=== PATIENT | female | born 1970 | race Caucasian/White ===

== ENCOUNTER 2019-10-26 03:59 | Emergency (ER) | payer OTHER, SELFPAY ==
[2019-10-26 04:04] VITALS: BP 162/91; PULSE 120; RESP 12; TEMP 36.6; O2SAT 100
--- NOTE | 2019-10-26 04:08 | ECG_ITS ---
Measurements Intervals [place] Rate: 112 P: 50 NV: 183 QRS: -50 QRSD: 97 T: 55 QT: 345 QTc: 472 Interpretive Statements SINUS TACHYCARDIA POSSIBLE LEFT ATRIAL ENLARGEMENT LEFT ANTERIOR FASCICULAR BLOCK BASELINE ARTIFACT- I, V5 ABNORMAL ECG Electronically Signed On 10-26-2019 9:31:31 CDT by William Gramajo D.O.
[2019-10-26] MEDS: SODIUM CHLORIDE 0.9% IV 1,000 ML 999 ML IV CONT (04:35)
[2019-10-26 04:36] LABS: Basophils Absolute Auto 0.1 K/mm3 (0.0-0.1); Basophils Percent Auto 0.5 % (0.2-1.2); Eosinophils Absolute Auto 0.1 K/mm3 (0-0.3); Eosinophils Percent Auto 0.5 % (0-4.4); Hematocrit 42.3 % (37.0-47.0); Hemoglobin 14.8 g/dL (12.0-15.0); Immature Granulocyte Absolute 0.03 K/mm3 (0.00-0.031); Immature Granulocyte Percent A 0.3 % (0-0.5); Lymphocytes Absolute Auto 3.73 K/mm3 (0.9-3.2); Lymphocytes Percent Auto 32.7 % (18.3-44.2); Mean Corpuscular Hemoglobin 30.3 pg (26-34); Mean Corpuscular Volume 86.7 fl (80-100); Mean Platelet Volume 11.1 fl (7.4-10.4); Monocytes Absolute Auto 0.6 K/mm3 (0.1-0.6); Monocytes Percent Auto 5.3 % (2.6-8.5); Neutrophils Absolute Auto 6.9 K/mm3 (1.3-6.7); Neutrophils Percent Auto 60.7 % (45.5-73.1); Platelet Count Result 310 k/mm3 (150-375); Red Blood Count 4.88 M/mm3 (4.2-5.4); Red Cell Distribution Width 12.6 % (11.5-14.5); White Blood Count 11.4 K/mm3 (4.5-10.0)
[2019-10-26 04:49] LABS: Blood Urea Nitrogen 10 mg/dL (7-17); Calcium 10.4 mg/dL (8.4-10.2); Carbon Dioxide 18 mmol/L (22-30); Chloride 105 mmol/L (98-107); Estimated Glomerular Filt Rate > 60; Glucose 168 mg/dL (65-105); Potassium 3.2 mmol/L (3.4-5.0); Sodium 137 mmol/L (137-145)
[2019-10-26 04:57] VITALS: BP 124/83; PULSE 94; RESP 17; O2SAT 95
[2019-10-26 05:04] LABS: Add Urine Microscopic? NO; Appearance Urine Clear (Clear); Bilirubin Urine Negative (Negative); Blood Urine Negative (Negative); Color Urine Colorless (Yellow); Glucose Urine UA Negative (Negative); Ketones Urine Negative (Negative); Leukocyte Esterase Ur Negative LEU/UL (Negative); Nitrate Urine Negative (Negative); Protein Urine Negative (Negative); Urobilinogen Urine Negative mg/dL (<2.0)
[2019-10-26 05:14] LABS: Specific Grav Ur 1.004 (1.001-1.035)
--- NOTE | 2019-10-26 06:13 | ED.GENADULT ---
HPI - General Adult General Chief complaint: Recheck/Abnormal Lab/Rx Stated complaint: high blood pressure Time Seen by Provider: 10/26/19 04:14 History of Present Illness HPI narrative: Patient is a 49-year-old female who presents the ER with racing heart. She has been feeling weak as of late and then felt like her heart was racing this evening. Heart rate of 120 upon arrival here. Patient is currently fasting for Ramadan. Denies fevers or chills or sweats. Patient's reported that patient had some chest tightness and is concerned she is having SVT, patient has not complained of chest pain. Related Data Allergies Allergy/AdvReac Type Severity Reaction Status Date / Time No Known Allergies Allergy Unverified 10/26/19 04:11 Review of Systems Review of Systems: All systems reviewed & are unremarkable except as noted in HPI and below Constitutional: Constitutional: Denies chills, Reports fatigue, Denies fever(s) and Reports weakness ENT: Denies nasal congestion and Denies sore throat Cardiovascular: Cardiovascular: Denies chest pain, Reports rapid heart rate and Denies radiating jaw, neck or arm pain Respiratory: Respiratory: Denies chest congestion, Denies dyspnea and Denies wheezing Gastrointestinal: Gastrointestinal: Denies abdominal pain, Denies diarrhea, Denies nausea and Denies vomiting Genitourinary: Genitourinary: Denies nocturia and Denies dysuria PMF Past Medical History Medical History (Updated 10/26/19 @ 06:25 by Saravanan Finn MD) No active medical problems Surgical History Surgical History (Updated 10/26/19 @ 06:19 by Saravanan Finn MD) History of section Family History Family History (Updated 01/07/16 @ 23:19 by DOCTOR UNKNOWN) Mother Hypertension Family history of diabetes mellitus in first degree relative Sibling Family history of malignant neoplasm Father Family history of diabetes mellitus in first degree relative Social History Social History Smoking status: Never smoker Alcohol intake: never Exam Narrative: Exam Narrative: GENERAL: Well-appearing, well-nourished, and in no acute distress. HEAD: Normocephalic, atraumatic. ENT: Mucous membranes moist. CHEST: Clear to auscultation. No respiratory distress. HEART: Tachycardic and regular. Normal peripheral pulses. ABDOMEN: Soft, nontender, nondistended. EXTREMITIES: Normal range of motion. No edema. SKIN: Warm, dry, no rash. NEURO: Alert and oriented x3. Course Course Emergency Course: Patient resting comfortably. Doing much better with IV fluid. Heart rate has reduced and is now 59 bpm with a blood pressure 109/76. She will be discharged home. Needs follow-up with PCP Vital Signs Vital signs: Vital Signs Temperature 97.8 F 10/26/19 04:04 Pulse Rate 120 H 10/26/19 04:04 Respiratory Rate 12 10/26/19 04:04 Blood Pressure 162/91 H 10/26/19 04:04 Pulse Oximetry 100 10/26/19 04:04 Temperature 97.8 F 10/26/19 04:04 Pulse Rate 94 10/26/19 04:57 Respiratory Rate 17 10/26/19 04:57 Blood Pressure 124/83 10/26/19 04:57 Pulse Oximetry 95 10/26/19 04:57 Medical Decision Making Vital Signs Vital Signs: Vital Signs Temperature 97.8 F 10/26/19 04:04 Pulse Rate 120 H 10/26/19 04:04 Respiratory Rate 12 10/26/19 04:04 Blood Pressure 162/91 H 10/26/19 04:04 Pulse Oximetry 100 10/26/19 04:04 Temperature 97.8 F 10/26/19 04:04 Pulse Rate 94 10/26/19 04:57 Respiratory Rate 17 10/26/19 04:57 Blood Pressure 124/83 10/26/19 04:57 Pulse Oximetry 95 10/26/19 04:57 Lab Data Result diagrams: 10/26/19 04:17 10/26/19 04:17 Labs: Lab Results 10/26/19 10/26/19 10/26/19 Range/Units 04:17 04:17 04:17 WBC 11.4 H (4.5-10.0) K/mm3 RBC 4.88 (4.2-5.4) M/mm3 Hgb 14.8 (12.0-15.0) g/dL Hct 42.3 (37.0-47.0) % MCV 86.7 (80-100) fl MCH 30.3 (26-34) pg MCHC 35.0 (32-3
[2019-10-26 06:35] VITALS: BP 114/70; PULSE 71; RESP 18; O2SAT 100
[2019-10-26 07:02] LABS: Free T4 Free Thyroxine Reflex 0.99 ng/dL (0.78-2.19)
== END 2019-10-26 06:35 | disposition home or self-care (01) ==
PROVIDERS: Emergency Provider Emergency Medicine; PCP Family Medicine Sports Medicine
DX: R00.2 Palpitations (principal); R00.0 Tachycardia, unspecified
CPT/HCPCS: 36415; 80048; 81003; 84439; 84443; 84480; 85025; 93005; 96360; 96361; 99283; J7030

== ENCOUNTER 2021-03-21 22:59 | Emergency (ER) | payer OTHER, SELFPAY ==
--- NOTE | ~2021-03-21 | CT_ITS ---
EXAMINATION: CT abdomen pelvis w con DATE: 03/22/2021 02:54 INDICATION: Epigastric abdominal pain, elevated liver enzymes. TECHNIQUE: Computed tomography (CT) of the abdomen and pelvis was performed with 100 cc Omnipaque 350 intravenous contrast. Automated exposure control and iterative reconstruction technique were employe d. Exam dose: 326.83 mGy-cm total exam DLP. COMPARISON: None. FINDINGS: There are multiple scattered 5 mm or smaller hypoattenuating hepatic lesions, too small to definitive ly characterize; these are most likely small cysts. Normal splenic size. No pancreatic mass lesion, calcification or ductal dilatation. The gallbladder i s present. No gallbladder wall thickening or pericholecystic fluid or fat stranding. No bile duct dil atation. Normal morphology of the adrenal glands. No renal mass lesion or urinary tract calculus or hydroureteronephrosis. The urinary bladder is unrem arkable. IUD within uterus. Normal appendix. No bowel obstruction, bowel wall thickening, pneumatosis or intraperitoneal free air . Included skeletal structures are unremarkable. IMPRESSION: IUD within uterus Numerous very small hepatic hypoattenuating lesions, too small to definitively characterize, most lik winsome hepatic cysts Reviewed, dictated and finalized at [facility]. Reviewed, dictated and finalized at location [facility]. IMPRESSION: IUD within uterus Numerous very small hepatic hypoattenuating lesions, too small to definitively characterize, most likely hepatic cysts
[2021-03-21 23:12] VITALS: BP 133/84; PULSE 114; RESP 17; TEMP 36.8; O2SAT 100
--- NOTE | 2021-03-22 00:11 | ED.GENADULT ---
HPI - General Adult General Chief complaint: Weakness Stated complaint: palpations Time Seen by Provider: 03/21/21 23:47 History of Present Illness HPI narrative: Patient 51-year-old female presents the emergency department with chief complaint of palpitations and epigastric discomfort. Patient reports that she is had problems with palpitation for the past and noticed that her heart rate got up to 120. Patient reports no vomiting but does report she has had some nausea with this denies chest pain but does she has had some pressure in her epigastric region. Patient denies fever denies chills denies diarrhea but states she is been having more bowel movements than normal. Patient reports symptoms are not worsened by anything nor they improved by anything reports she had no episodes of syncope. Related Data Allergies Allergy/AdvReac Type Severity Reaction Status Date / Time No Known Allergies Allergy Verified 03/22/21 00:56 Review of Systems Review of Systems: A 10 system review of systems was completed on the patient and is negative except for what is stated in the HPI. Nursing and ancillary documentation was reviewed. [facility] Past Medical History Medical History No active medical problems Surgical History Surgical History History of section Family History Family History Mother Hypertension Family history of diabetes mellitus in first degree relative Sibling Family history of malignant neoplasm Father Family history of diabetes mellitus in first degree relative Social History Social History Smoking status: Never smoker Alcohol intake: never Exam Narrative: GENERAL: Well-appearing, well-nourished, and in no acute distress. HEAD: Normocephalic, atraumatic. EYES: PERRLA and EOMI. ENT: Nares clear, no rhinorrhea or epistaxis. Mucous membranes moist. NECK: Supple. CHEST: Clear to auscultation. No respiratory distress. HEART: Regular rate and rhythm. No murmur heard. Normal peripheral pulses. ABDOMEN: Soft, nontender, nondistended, normal active bowel sounds. EXTREMITIES: Normal range of motion. No edema. SKIN: Warm, dry, no rash. NEURO: No focal deficits. Alert and oriented x3. PSYCH: Normal mood and affect. Course Vital Signs Vital signs: Vital Signs Temperature 36.8 C 03/21/21 23:12 Pulse Rate 114 H 03/21/21 23:12 Respiratory Rate 17 03/21/21 23:12 Blood Pressure 133/84 03/21/21 23:12 Pulse Oximetry 100 03/21/21 23:12 Temperature 36.8 C 03/21/21 23:12 Pulse Rate 103 H 03/22/21 03:50 Respiratory Rate 22 H 03/22/21 03:50 Blood Pressure 124/71 03/22/21 03:50 Pulse Oximetry 97 03/22/21 03:50 Medical Decision Making Vital Signs Vital Signs: Vital Signs Temperature 36.8 C 03/21/21 23:12 Pulse Rate 114 H 03/21/21 23:12 Respiratory Rate 17 03/21/21 23:12 Blood Pressure 133/84 03/21/21 23:12 Pulse Oximetry 100 03/21/21 23:12 Temperature 36.8 C 03/21/21 23:12 Pulse Rate 103 H 03/22/21 03:50 Respiratory Rate 22 H 03/22/21 03:50 Blood Pressure 124/71 03/22/21 03:50 Pulse Oximetry 97 03/22/21 03:50 Lab Data Result diagrams: 03/22/21 01:03 03/22/21 01:03 Labs: Lab Results 03/22/21 03/22/21 03/22/21 Range/Units 01:03 01:03 02:20 WBC 11.5 H (4.5-10.0) K/mm3 RBC 4.38 (4.2-5.4) M/mm3 Hgb 13.5 (12.0-15.0) g/dL Hct 40.3 (37.0-47.0) % MCV 92.0 (80-100) fl MCH 30.8 (26-34) pg MCHC 33.5 (32-36) g/dl RDW 13.3 (11.5-14.5) % Plt Count 257 (150-375) k/mm3 MPV 10.8 H (7.4-10.4) fl Immature Gran % (Auto) 0.4 (0-0.5) % Neut % (Auto) 80.6 H (45.5-73.1) % Lymph % (Auto) 14.4 L (18.3-44.2)
--- NOTE | 2021-03-22 00:28 | ECG_ITS ---
Measurements Intervals [place] Rate: 77 P: 39 MA: 168 QRS: -42 QRSD: 107 T: 3 QT: 381 QTc: 431 Interpretive Statements SINUS RHYTHM WITH SINUS ARRHYTHMIA LEFT AXIS DEVIATION POOR R WAVE PROGRESSION, ANTERIOR LEADS BORDERLINE T WAVE ABNORMALITY- INFERIOR LEADS BORDERLINE ECG Electronically Signed On 03-22-2021 7:57:19 CDT by William Gramajo D.O.
[2021-03-22] MEDS: SODIUM CHLORIDE 0.9% IV 1,000 ML 999 ML IV CONT (01:02)
[2021-03-22 01:19] LABS: Alanine Aminotransferase 313 U/L (4-35); Albumin Level 4.7 g/dL (3.5-5.1); Alkaline Phosphatase 95 U/L (38-126); Anion Gap 7 mmol/L (8-16); Aspartate Amino Transferase 123 U/L (14-36); Bilirubin,Total 0.6 mg/dL (0.2-1.3); Blood Urea Nitrogen 12 mg/dL (7-17); Calcium 10.3 mg/dL (8.4-10.2); Carbon Dioxide 26 mmol/L (22-30); Chloride 107 mmol/L (98-107); Estimated CRCL calculation 78 ml/min; Estimated Glomerular Filt Rate > 60; Glucose 124 mg/dL (65-110); Lipase 85 U/L (23-300); Potassium 4.3 mmol/L (3.4-5.0); Sodium 140 mmol/L (137-145)
[2021-03-22 01:31] LABS: Troponin I < 0.012 ng/mL (0.000-0.034)
[2021-03-22 01:33] LABS: Basophils Absolute Auto 0.1 K/mm3 (0.0-0.1); Basophils Percent Auto 0.4 % (0.2-1.2); Eosinophils Percent Auto 0.3 % (0-4.4); Hematocrit 40.3 % (37.0-47.0); Hemoglobin 13.5 g/dL (12.0-15.0); Immature Granulocyte Absolute 0.05 K/mm3 (0.00-0.031); Immature Granulocyte Percent A 0.4 % (0-0.5); Lymphocytes Absolute Auto 1.65 K/mm3 (0.9-3.2); Lymphocytes Percent Auto 14.4 % (18.3-44.2); Mean Corpuscular HGB Conc 33.5 g/dl (32-36); Mean Corpuscular Hemoglobin 30.8 pg (26-34); Mean Platelet Volume 10.8 fl (7.4-10.4); Monocytes Absolute Auto 0.5 K/mm3 (0.1-0.6); Monocytes Percent Auto 3.9 % (2.6-8.5); Neutrophils Absolute Auto 9.3 K/mm3 (1.3-6.7); Neutrophils Percent Auto 80.6 % (45.5-73.1); Platelet Count Result 257 k/mm3 (150-375); Red Blood Count 4.38 M/mm3 (4.2-5.4); Red Cell Distribution Width 13.3 % (11.5-14.5); White Blood Count 11.5 K/mm3 (4.5-10.0)
[2021-03-22 02:41] LABS: Add Urine Microscopic? YES; Appearance Urine Cloudy (Clear); Bacteria Urine Trace /hpf; Bilirubin Urine Negative (Negative); Blood Urine Negative (Negative); Color Urine Yellow (Yellow); Glucose Urine UA Negative (Negative); Ketones Urine Negative (Negative); Leukocyte Esterase Ur Negative LEU/UL (Negative); Nitrate Urine Negative (Negative); Protein Urine Negative (Negative); RBC Urine 0-2 /hpf (0-2); Specific Grav Ur 1.008 (1.001-1.035); Squamous Epithelial Cell Urine Many /hpf (Few); Urobilinogen Urine Negative mg/dL (<2.0); WBC Urine 0-3 /hpf
[2021-03-22 03:50] VITALS: BP 124/71; PULSE 103; RESP 22; O2SAT 97
[2021-03-22 04:53] VITALS: BP 127/74; PULSE 98; RESP 16; O2SAT 99
== END 2021-03-22 04:49 | disposition home or self-care (01) ==
PROVIDERS: Emergency Provider Emergency Medicine; PCP Family Medicine Sports Medicine
DX: R00.2 Palpitations (principal); R74.8 Abnormal levels of other serum enzymes
CPT/HCPCS: 36415; 74177; 80053; 81001; 83690; 83735; 84443; 84484; 85025; 93005; 96360; 99284; J7030; Q9967

== ENCOUNTER 2021-04-04 17:23 | Emergency (ER) | payer OTHER, SELFPAY ==
[2021-04-04] VITALS (11 sets, daily range): BP systolic 116–151; BP diastolic 72–91; PULSE 60–86; RESP 12–26; TEMP 36.6; O2SAT 99–100
--- NOTE | ~2021-04-04 | CT_ITS ---
EXAMINATION: CTA brain carotid DATE: 04/04/2021 22:54 CDT INDICATION: Dizziness and ringing in left ear. TECHNIQUE: Computed tomographic angiography (CTA) of the head was performed without and with 100 mL O mnipaque-350 intravenous contrast. CTA of the neck was performed with intravenous contrast. The dose- length product was 1623.73 mGy-cm. Maximum intensity projection and volume rendered 3D-reconstruction s were created by the technologist on a separate workstation. COMPARISON: None. FINDINGS: HEAD CTA: The distal internal carotid, distal vertebral and basilar arteries are patent bilaterally. Normal anatomic variant of small left P1 segment and origin of left posterior cerebral artery f rom anterior circulation. No aneurysm, significant stenosis, vascular malformation is identified. No acute intracranial hemorrhage, infarction, mass or mass effect. No ventriculomegaly or midline shift. Paranasal sinuses and mastoids are pneumatized. No depressed skull fractures. NECK CTA: The aorta and great vessels are within normal limits. Evaluation of the common and internal carotid artery somewhat limited by motion. No significant atherosclerotic plaque, dissection or sign ificant stenosis identified. Vertebral arteries are patent bilaterally. Mild degenerative spondylosis mid cervical spine. Neck soft tissues are unremarkable. IMPRESSION: 1: No acute intracranial abnormality. 2: No significant vascular abnormality of the neck or intracranial arteries. Reviewed, dictated and finalized at location [facility].
--- NOTE | 2021-04-04 19:31 | ECG_ITS ---
Measurements Intervals [place] Rate: 74 P: 32 [place]: 164 QRS: -40 QRSD: 102 T: 0 QT: 375 QTc: 418 Interpretive Statements SINUS RHYTHM LEFT AXIS DEVIATION POOR R WAVE PROGRESSION, ANTERIOR LEADS BORDERLINE T WAVE ABNORMALITY- INFERIOR LEADS BORDERLINE ECG Electronically Signed On 04-04-2021 22:57:24 CDT by William Gramajo D.O.
[2021-04-04 20:00] LABS: Basophils Percent Auto 0.4 % (0.2-1.2); Eosinophils Percent Auto 0.2 % (0-4.4); Hemoglobin 14.7 g/dL (12.0-15.0); Immature Granulocyte Absolute 0.03 K/mm3 (0.00-0.031); Immature Granulocyte Percent A 0.3 % (0-0.5); Lymphocytes Absolute Auto 1.84 K/mm3 (0.9-3.2); Lymphocytes Percent Auto 18.3 % (18.3-44.2); Mean Corpuscular HGB Conc 34.2 g/dl (32-36); Mean Corpuscular Hemoglobin 30.8 pg (26-34); Mean Corpuscular Volume 90.1 fl (80-100); Mean Platelet Volume 10.5 fl (7.4-10.4); Monocytes Absolute Auto 0.4 K/mm3 (0.1-0.6); Monocytes Percent Auto 4.4 % (2.6-8.5); Neutrophils Absolute Auto 7.7 K/mm3 (1.3-6.7); Neutrophils Percent Auto 76.4 % (45.5-73.1); Platelet Count Result 260 k/mm3 (150-375); Red Blood Count 4.77 M/mm3 (4.2-5.4); Red Cell Distribution Width 12.8 % (11.5-14.5); White Blood Count 10.1 K/mm3 (4.5-10.0)
--- NOTE | 2021-04-04 20:05 | ED.GENADULT ---
HPI - General Adult General Chief complaint: Dizziness <Macy Mathis MD - Last Filed: 04/05/21 11:41> Stated complaint: dizzy <Macy Mathis MD - Last Filed: 04/05/21 11:41> Time Seen by Provider: 04/04/21 19:35 <Macy Mathis MD - Last Filed: 04/05/21 11:41> Source: patient and family <Macy Mathis MD - Last Filed: 04/05/21 11:41> History of Present Illness HPI narrative: Patient is a 51 y/o female complaining of severe dizziness since 3:00 PM today. She states that she was doing house work at home when this occurred. She described her dizziness a room spinning sensation. Movement makes her dizziness worse. She has no headache, chest pain or vomiting. <Macy Mathis MD - Last Filed: 04/05/21 11:41> Related Data Allergies/adverse reactions: Allergies Allergy/AdvReac Type Severity Reaction Status Date / Time No Known Allergies Allergy Verified 03/22/21 00:56 <Macy Mathis MD - Last Filed: 04/05/21 11:41> Review of Systems Constitutional: Constitutional: Denies chills, Denies fever(s), Denies headache(s) and Denies weakness <Macy Mathis MD - Last Filed: 04/05/21 11:41> Eyes: Eyes: Denies blurry vision <Macy Mathis MD - Last Filed: 04/05/21 11:41> ENT: Reports dizziness, Denies headache(s) and Denies neck pain <Macy Mathis MD - Last Filed: 04/05/21 11:41> Cardiovascular: Cardiovascular: Denies chest pain and Denies dyspnea <Mayc Mathis MD - Last Filed: 04/05/21 11:41> Respiratory: Respiratory: Denies cough and Denies dyspnea <Macy Mathis MD - Last Filed: 04/05/21 11:41> Gastrointestinal: Gastrointestinal: Denies abdominal pain, Denies diarrhea, Denies nausea and Denies vomiting <Macy Mathis MD - Last Filed: 04/05/21 11:41> Genitourinary: Genitourinary: Denies hematuria and Denies dysuria <Macy Mathis MD - Last Filed: 04/05/21 11:41> Musculoskeletal: Musculoskeletal: Denies back pain and Denies neck pain <Macy Mathis MD - Last Filed: 04/05/21 11:41> Neurologic: Reports dizziness, Denies headache(s) and Denies weakness <Macy Mathis MD - Last Filed: 04/05/21 11:41> [facility] Past Medical History Medical History: Medical History No active medical problems <Macy Mathis MD - Last Filed: 04/05/21 11:41> Surgical History Surgical History: Surgical History History of section <Macy Mathis MD - Last Filed: 04/05/21 11:41> Family History Family History: Family History Mother Hypertension Family history of diabetes mellitus in first degree relative Sibling Family history of malignant neoplasm Father Family history of diabetes mellitus in first degree relative <Macy Mathis MD - Last Filed: 04/05/21 11:41> Social History Social History: Social History Smoking status: Never smoker Alcohol intake: never <Macy Mathis MD - Last Filed: 04/05/21 11:41> Exam Const: General: no acute distress and well developed <Macy Mathis MD - Last Filed: 04/05/21 11:41> Orientation/consciousness: oriented to person, oriented to place, oriented to time and patient oriented x3 <Macy Mathis MD - Last Filed: 04/05/21 11:41> HENMT: Head: normocephalic <Macy Mathis MD - Last Filed: 04/05/21 11:41> Ears: external ears normal <Macy Mathis MD - Last Filed: 04/05/21 11:41> General nose exam: Normal external nose present <Macy Mathis MD - Last Filed: 04/05/21 11:41> Eyes: General: appearance normal, both eyes and all related structures <Macy Mathis MD - Last Filed: 04/05/21 11:41> Conjunctivae: conjunctivae normal <Macy Mathis MD - Last Filed: 04/05/21 11:41> Neck: Neck: normal visual inspection and full ROM <Macy Mathis MD - Last Filed:
[2021-04-04] MEDS: MECLIZINE HCL 25 MG TABLET PO (20:06)
[2021-04-04 20:11] LABS: Alanine Aminotransferase 49 U/L (4-35); Albumin Level 4.8 g/dL (3.5-5.1); Alkaline Phosphatase 72 U/L (38-126); Anion Gap 7 mmol/L (8-16); Aspartate Amino Transferase 33 U/L (14-36); Bilirubin,Total 0.6 mg/dL (0.2-1.3); Blood Urea Nitrogen 11 mg/dL (7-17); Calcium 10.1 mg/dL (8.4-10.2); Carbon Dioxide 25 mmol/L (22-30); Chloride 107 mmol/L (98-107); Estimated CRCL calculation 92 ml/min; Estimated Glomerular Filt Rate > 60; Glucose 109 mg/dL (65-110); Potassium 4.1 mmol/L (3.4-5.0); Sodium 139 mmol/L (137-145)
[2021-04-04] MEDS: ONDANSETRON INJ 4 MG/2 ML VIAL IV PUSH (21:19)
[2021-04-04] MEDS: SODIUM CHLORIDE 0.9% IV 1,000 ML 999 ML IV CONT (21:19)
== END 2021-04-04 23:00 | disposition home or self-care (01) ==
PROVIDERS: Emergency Provider Emergency Medicine; PCP Family Medicine Sports Medicine
DX: H81.10 Benign paroxysmal vertigo, unspecified ear (principal)
CPT/HCPCS: 36415; 70496; 70498; 80053; 85025; 93005; 96365; 96374; 99284; A9270; J2405; J7030; Q9967

== ENCOUNTER → 2021-05-11 08:10 | Outpatient (CLI) | payer OTHER, SELFPAY ==
--- NOTE | ~2021-05-11 | US_ITS ---
US right upper quadrant INDICATION: Enlarged gallbladder with abdominal pain PROCEDURE: Realtime right upper abdominal ultrasound. COMPARISON: No prior studies for comparison. FINDINGS: The pancreas is normal without focal mass or pancreatic ductal dilation. Liver echotexture is increased, consistent with fatty infiltration. There is normal directional flow in the portal ve in. The gallbladder is normal without stones, gallbladder wall thickening or pericholecystic fluid. Comm on bile duct measures 3 mm. No sonographic Juan's sign. IMPRESSION: 1: Fatty infiltration of the liver. Reviewed, dictated and finalized at location [facility]. AGING ARCHITECT
== END ==
PROVIDERS: PCP Family Medicine Sports Medicine; Visit Provider Family Medicine Sports Medicine
DX: K76.0 Fatty (change of) liver, not elsewhere classified (principal)
CPT/HCPCS: 76705

== ENCOUNTER 2021-05-18 07:09 | Outpatient (CLI) | payer OTHER, SELFPAY ==
--- NOTE | ~2021-05-18 | NM_ITS ---
EXAMINATION: NM hepatobiliary wo pharm DATE: 05/18/2021 10:30 INDICATION: Right upper quadrant abdominal pain. COMPARISON: Ultrasound 05/11/2021 TECHNIQUE: 5.2 mCi Tc-99m mebrofenin (Choletec) was administered intravenously. Scintigraphic images of the abdomen were obtained for one hour. Then, the patient drank 8 oz Ensure, and imaging was cont inued for 60 minutes. FINDINGS: There is normal clearance of radiotracer from the blood pool. There is homogeneous tracer u ptake by the liver. Activity progresses to the bowel and gallbladder. Gallbladder ejection fraction (GBEF) was 43%. Note that with this technique, normal GBEF >= 33%. IMPRESSION: 1. Normal hepatobiliary scintigraphy. Reviewed, dictated and finalized at location A. EMIC ASSOCIATE
== END 2021-05-18 07:10 | disposition home or self-care (01) ==
PROVIDERS: PCP Family Medicine Sports Medicine; Visit Provider Family Medicine Sports Medicine
DX: R10.9 Unspecified abdominal pain (principal)
CPT/HCPCS: 78226; A9537

== ENCOUNTER 2021-07-20 12:48 | Emergency (ER) | payer OTHER, SELFPAY ==
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
[2021-07-20 12:52] VITALS: BP 117/89; PULSE 94; RESP 20; TEMP 36.9; O2SAT 100
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
[2021-07-20 13:45] VITALS: BP 117/85; PULSE 81; RESP 16; O2SAT 100
[2021-07-20] MEDS: TETANUS,DIPHTHERIA,AC PERTUSSIS ADULT (0.5 ML) BOOSTRIX IM (13:59)
[2021-07-20] MEDS: PROMETHAZINE HCL 25 MG/ML AMPUL 12.5 MG IV PUSH (13:59)
[2021-07-20 14:00] LABS: Basophils Percent Auto 0.6 % (0.2-1.2); Eosinophils Percent Auto 0.4 % (0-4.4); Hemoglobin 13.6 g/dL (12.0-15.0); Immature Granulocyte Absolute 0.02 K/mm3 (0.00-0.031); Immature Granulocyte Percent A 0.3 % (0-0.5); Lymphocytes Absolute Auto 1.99 K/mm3 (0.9-3.2); Lymphocytes Percent Auto 27.5 % (18.3-44.2); Mean Corpuscular HGB Conc 34.9 g/dl (32-36); Mean Corpuscular Hemoglobin 31.1 pg (26-34); Mean Platelet Volume 10.4 fl (7.4-10.4); Monocytes Absolute Auto 0.4 K/mm3 (0.1-0.6); Monocytes Percent Auto 5.4 % (2.6-8.5); Neutrophils Absolute Auto 4.8 K/mm3 (1.3-6.7); Neutrophils Percent Auto 65.8 % (45.5-73.1); Platelet Count Result 259 k/mm3 (150-375); Red Blood Count 4.38 M/mm3 (4.2-5.4); Red Cell Distribution Width 12.6 % (11.5-14.5); White Blood Count 7.2 K/mm3 (4.5-10.0)
[2021-07-20 14:17] LABS: Alanine Aminotransferase 49 U/L (4-35); Albumin Level 4.4 g/dL (3.5-5.1); Alkaline Phosphatase 65 U/L (38-126); Anion Gap 9 mmol/L (8-16); Aspartate Amino Transferase 47 U/L (14-36); Bilirubin,Total 0.6 mg/dL (0.2-1.3); Blood Urea Nitrogen 12 mg/dL (7-17); Calcium 9.7 mg/dL (8.4-10.2); Carbon Dioxide 20 mmol/L (22-30); Chloride 107 mmol/L (98-107); Estimated CRCL calculation 77 ml/min; Estimated Glomerular Filt Rate > 60; Glucose 119 mg/dL (65-110); Potassium 3.5 mmol/L (3.4-5.0); Sodium 136 mmol/L (137-145)
[2021-07-20 15:00] VITALS: BP 125/80; PULSE 72; RESP 16; O2SAT 97
[2021-07-20 16:40] VITALS: BP 130/70; PULSE 70; RESP 16; O2SAT 97
== END 2021-07-20 17:15 | disposition home or self-care (01) ==
PROVIDERS: Emergency Provider Emergency Medicine; PCP Family Medicine Sports Medicine
DX: S29.012A Strain of muscle and tendon of back wall of thorax, initial encounter (principal); S20.213A Contusion of bilateral front wall of thorax, initial encounter; S80.02XA Contusion of left knee, initial encounter; Z23 Encounter for immunization; V53.5XXA Driver of pick-up truck or van injured in collision with car, pick-up truck or van in traffic accident, initial encounter
CPT/HCPCS: 36415; 70450; 71260; 72125; 73562; 74177; 80053; 85025; 90471; 90715; 96374; 99284; J2550; Q9967

== ENCOUNTER 2021-11-09 10:18 | Outpatient (CLI) | payer OTHER, SELFPAY ==
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
== END 2021-11-09 10:19 ==
DX: M47.817 Spondylosis without myelopathy or radiculopathy, lumbosacral region (principal); M48.07 Spinal stenosis, lumbosacral region; M25.562 Pain in left knee
CPT/HCPCS: 72148; 73721

== ENCOUNTER 2022-03-20 14:15 | Outpatient (CLI) | payer OTHER, SELFPAY ==
--- NOTE | 2022-03-20 | ECG_ITS ---
Measurements Intervals [place] Rate: 67 P: -5 OK: 176 QRS: -45 QRSD: 104 T: 6 QT: 376 QTc: 397 Interpretive Statements SINUS RHYTHM PATTERN CONSISTENT WITH PULMONARY DISEASE LEFT ANTERIOR FASCICULAR BLOCK [QRS AXIS <= -45, QR IN I, RS IN II] COMPARED TO ECG 04/04/2021 19:45:44 NO SIGNIFICANT CHANGE Electronically Signed On 03-21-2022 13:09:42 CDT by Madyson Arnett M.D.
== END 2022-03-20 14:16 | disposition home or self-care (01) ==
LOC: ANHCARD 14:25
PROVIDERS: PCP Family Medicine
DX: E66.9 Obesity, unspecified (principal); I44.4 Left anterior fascicular block
CPT/HCPCS: 93005